=== PATIENT | male | born 1965 | race Caucasian/White ===

== ENCOUNTER 2021-06-29 15:47 | Emergency (ER) | payer OTHER ==
[~2021-06-29] VITALS: Ht 177.8 cm; Wt 93.0 kg
[~2021-06-29 15:47] MED LIST: Esgic Tablet1 EACH PO; VALSARTAN-HCTZ1 EAC1 PO
[2021-06-29] MEDS ORDERED: ATOR10 (16:27)
[2021-06-29] MEDS ORDERED: DOCU100 PO (16:27)
[2021-06-29] MEDS ORDERED: CHLO25B (16:27)
[2021-06-29] MEDS ORDERED: LOSA50 (16:27)
[2021-06-29] MEDS ORDERED: Norco 5-325 Ta1 EACH PO (16:27)
[2021-06-29] MEDS ORDERED: Aspir 8181 MG PO (16:27)
[2021-06-29] MEDS ORDERED: AMLO10 (16:27)
[2021-06-29] MEDS ORDERED: POTCHL20ER (16:28)
== END 2021-06-29 18:10 | disposition home or self-care (01) ==
LOC: ER 15:47
DX: T83.098A Other mechanical complication of other urinary catheter, initial encounter (principal); R31.9 Hematuria, unspecified; F17.210 Nicotine dependence, cigarettes, uncomplicated; Z79.82 Long term (current) use of aspirin; Z79.899 Other long term (current) drug therapy; Y84.6 Urinary catheterization as the cause of abnormal reaction of the patient, or of later complication, without mention of misadventure at the time of the procedure
CPT/HCPCS: 99283